=== PATIENT | female | born 1985 | race Two or more races ===

== ENCOUNTER 2021-11-01 04:08 | Emergency (ER) | payer MEDICAID ==
[~2021-11-01] VITALS: Ht 165.1 cm; Wt 78.9 kg
[2021-11-01 04:20] VITALS: BP 136/84
--- NOTE | 2021-11-01 04:20 | NUR ---
to bed ambulatory
--- NOTE | 2021-11-01 04:30 | NUR ---
RECEIVED PT WITH C/O HEADACHE, PAIN UPON OPENING MOUTH, LEFT CHEEK PAIN RADIATING TO LEFT SHOULDER.
--- NOTE | 2021-11-01 04:37 | NUR ---
Dr. Kimbrough examining patient.
[2021-11-01] MEDS ORDERED: diphenhydrAMINE 50 MG/ML VIAL IM ONE (04:45)
[2021-11-01] MEDS ORDERED: PROCHLORPERAZINE 10 MG/2 ML VIAL IM ONE (04:45)
[2021-11-01] MEDS ORDERED: KETOROLAC 60 MG/2 ML VIAL IM ONE (04:45)
[2021-11-01 05:55] VITALS: BP 136/84
--- NOTE | 2021-11-01 05:55 | NUR ---
Patient discharged with v/s stable. Written and verbal after care instructions given and explained. Patient verbalized understanding. Ambulatory with steady gait. All questions addressed prior to discharge. Advised to follow up with PMD.
== END 2021-11-01 05:55 | disposition home or self-care (01) ==
LOC: MED 04:08
DX: G43.909 Migraine, unspecified, not intractable, without status migrainosus (principal)
CPT/HCPCS: 81025; 96372; 99284; J0780; J1200; J1885

== ENCOUNTER 2022-04-08 08:34 | Emergency (ER) | payer MEDICAID ==
[~2022-04-08] VITALS: Ht 165.1 cm; Wt 73.5 kg
[2022-04-08 08:38] VITALS: BP 141/88
--- NOTE | 2022-04-08 08:45 | NUR ---
Patient ambulated to bed 8.
--- NOTE | 2022-04-08 09:02 | NUR ---
36 y/o female bib self for vomiting, diarrhea, generalized body and bone pain x yesterday. Patient states she "is unable to keep food or medicine down." Patient's daughter has similar symptoms as patient and was seen in ER yesterday. Patient reports 9/10 generalized body pain. Medical History: Arthritis NKDA
--- NOTE | 2022-04-08 09:38 | NUR ---
36/F PRESENTS TO ED WITH C/O ABDOMINAL PAIN, N/V/D AND GENERALIZED BODY PAIN SINCE YESTERDAY. PATIENT REPORTS SHE TRIED TO ATTEMPT TAKING MEDICATION FOR SYMPTOMS BUT REPORTS UNABLE TO KEEP FOOD OR MEDICINE DOWN. STATES DAUGHTER HAS SIMILAR SYMPTOMS AT HOME, DENIES FEVER, CHILLS, COUGH, SOB.
[2022-04-08] MEDS: ONDANSETRON 4 MG ODT PO ONE (09:40)
--- NOTE | 2022-04-08 09:56 | NUR ---
Dr. Humphrey evaluating patient at bedside.
[2022-04-08] MEDS: LOPERAMIDE 2 MG CAP PO ONE (10:25)
[2022-04-08] MEDS: NACL 0.9% 1,000 ML IV ONE (10:27)
[2022-04-08 10:32] LABS: BASOPHILS % (AUTO) 0.2 % (0.0-2.0); EOSINOPHILS # (AUTO) 0.1 K/uL (0-0.4); EOSINOPHILS % (AUTO) 0.9 % (0.0-4.0); HEMATOCRIT 35.8 % (36-48); HEMOGLOBIN 11.5 g/dL (12.0-16.0); LYMPHOCYTES # (AUTO) 0.4 K/uL (2.5-16.5); LYMPHOCYTES % (AUTO) 5.7 % (20.5-51.1); MEAN CORPUSCULAR HEMOGLOBIN 24 pg (27-31); MEAN CORPUSCULAR HGB CONC 32 g/dL (33-37); MEAN CORPUSCULAR VOLUME 75.1 fL (80-94); MONOCYTES # (AUTO) 0.3 K/uL (0.8-1.0); MONOCYTES % (AUTO) 3.8 % (1.7-9.3); NEUTROPHILS # (AUTO) 6.9 K/uL (1.8-7.7); NEUTROPHILS % (AUTO) 89.4 % (42.2-75.2); PLATELET COUNT (AUTO) 341 K/uL (140-450); RED BLOOD CELL COUNT(AUTO) 4.77 MIL/uL (4.20-5.40); RED CELL DISTRIBUTION WIDTH 18.1 % (11.6-13.7); WHITE BLOOD COUNT (AUTO) 7.7 K/uL (4.8-10.8)
[2022-04-08 11:24] LABS: ALBUMIN 3.5 g/dL (3.4-5.0); ANION GAP 11.9 (8-16); CARBON DIOXIDE 25.4 mmol/L (21-32); CREATININE 0.7 mg/dL (0.6-1.3); POTASSIUM 3.3 mmol/L (3.5-5.1); TOTAL BILIRUBIN 0.3 mg/dL (0.0-1.0)
[2022-04-08] MEDS ORDERED: LOPE-143 PO (12:30)
[2022-04-08] MEDS ORDERED: ACET-10509 PO (12:30)
[2022-04-08] MEDS ORDERED: ONDA-188 SL (12:30)
[2022-04-08] MEDS ORDERED: TAM75 PO (12:51)
[2022-04-08] MEDS: OSELTAMIVIR PHOSPHATE 75 MG CAP PO ONE (13:02)
[2022-04-08 13:30] VITALS: BP 111/66
--- NOTE | 2022-04-08 13:30 | NUR ---
Patient discharged with v/s stable. Written and verbal after care instructions given. Patient alert, oriented and verbalized understanding of instructions. Ambulatory with steady gait. All questions addressed prior to discharge. ID band removed. Patient advised to follow up with PMD. Rx of Acetaminophen, Imodium, Zofran and Tamiflu given. Opportunity to ask questions provided and answered. WORK NOTE HANDED TO PATIENT.
--- NOTE | 2022-04-08 13:45 | NUR ---
The patient's care was reviewed and supervised by Sarah Chahal RN.
[2022-04-08 14:12] LABS: APPEARANCE,URINE CLEAR (CLEAR); BILIRUBIN,URINE NEGATIVE (NEGATIVE); BLOOD, URINE 3+ (NEGATIVE); COLOR,URINE YELLOW (YELLOW); LEUKOCYTE ESTERASE ,URINE NEGATIVE (NEGATIVE); NITRITE, URINE NEGATIVE (NEGATIVE); UGLUCOSE NEGATIVE (NEGATIVE)
[2022-04-08 15:55] LABS: RBC,URINE 0-5 /HPF (0-5)
[2022-04-08 15:56] LABS: WBC,URINE 0-5 /HPF (0-5)
== END 2022-04-08 13:30 | disposition home or self-care (01) ==
LOC: MED 08:34
DX: R11.2 Nausea with vomiting, unspecified (principal); Z20.822 Contact with and (suspected) exposure to COVID-19; R19.7 Diarrhea, unspecified; J11.1 Influenza due to unidentified influenza virus with other respiratory manifestations; Z79.899 Other long term (current) drug therapy
CPT/HCPCS: 36415; 80053; 81001; 81025; 85025; 87426; 87804; 96360; 99284; J7030; Q0162